=== PATIENT | male | born 1945 | race Caucasian/White ===

== ENCOUNTER 2022-09-04 12:46 | Inpatient (IN) | payer OTHER ==
[~2022-09-04] VITALS: Ht 180.3 cm; Wt 100.2 kg
[2022-09-04 12:56] VITALS: BP_SYST 145
[2022-09-04] MEDS ORDERED: NACL 0.9% 1,000 ML IV ONE (13:00)
[2022-09-04] MEDS ORDERED: LOP600 PO (13:06)
[2022-09-04] MEDS ORDERED: FURO-150 PO (13:06)
[2022-09-04] MEDS ORDERED: LORA10TA7 PO (13:06)
[2022-09-04] MEDS ORDERED: NEU300 PO (13:06)
[2022-09-04] MEDS ORDERED: KLO1 PO (13:06)
[2022-09-04] MEDS ORDERED: NORT50CA5 PO (13:06)
[2022-09-04] MEDS ORDERED: METF-518 PO (13:06)
[2022-09-04] MEDS ORDERED: TAMS-11 PO (13:06)
[2022-09-04] MEDS ORDERED: ATOR40TA68 PO (13:06)
[2022-09-04] MEDS ORDERED: LISI40TA13 PO (13:06)
[2022-09-04 13:20] LABS: BASOPHILS % (AUTO) 0.2 % (0.0-2.0); EOSINOPHILS % (AUTO) 0.2 % (0.0-4.0); HEMATOCRIT 35.4 % (36-54); HEMOGLOBIN 11.7 g/dL (14.0-18.0); LYMPHOCYTES # (AUTO) 0.8 K/uL (1.0-5.5); LYMPHOCYTES % (AUTO) 4.9 % (20.5-51.5); MEAN CORPUSCULAR HEMOGLOBIN 29 pg (27-31); MEAN CORPUSCULAR HGB CONC 33 % (32-36); MEAN CORPUSCULAR VOLUME 88 fL (79.0-98.0); MONOCYTES % (AUTO) 5.7 % (1.7-9.3); NEUTROPHILS # (AUTO) 15.3 K/uL (1.8-7.7); PLATELET COUNT (AUTO) 237 K/uL (130-430); RED BLOOD CELL COUNT(AUTO) 4.03 MIL/uL (4.2-6.2); RED CELL DISTRIBUTION WIDTH 14.5 % (9.0-15.0); WHITE BLOOD COUNT (AUTO) 17.2 K/uL (4.8-10.8)
[2022-09-04 13:33] LABS: ANION GAP 9 (5-15); CALCIUM 8.7 mg/dL (8.4-11.0); CHLORIDE 96 mmol/L (98-107); CREATININE 1.22 mg/dL (0.55-1.30); GLUCOSE 362 mg/dL (70-99); UREA NITROGEN, BLOOD 27 mg/dL (8-21)
[2022-09-04 13:38] LABS: INR 1.1 (0.80-1.20); PROTHROMBIN TIME 11.1 SECS (9.5-12.5)
[2022-09-04 13:40] LABS: ALANINE AMINOTRANSFERASE 8 U/L (12-78); ALBUMIN 2.4 g/dL (3.4-4.8); ASPARTATE AMINOTRANSFERASE 14 U/L (10-37); LIPASE 32 U/L (73-393); TOTAL BILIRUBIN 0.5 mg/dL (0.0-1.0)
[2022-09-04 13:57] LABS: ACETONE, SERUM NEGATIVE (NEGATIVE)
[2022-09-04] MEDS ORDERED: AMPICILLIN SODIUM/SULBACTAM NA 3 GM in NS 100 ML IV ONE (14:15)
[2022-09-04 14:52] LABS: BILIRUBIN,URINE NEGATIVE (NEGATIVE); BLOOD, URINE NEGATIVE (NEGATIVE); CLARITY/URINE CLEAR (CLEAR); COLOR,URINE YELLOW (YELLOW); GLUCOSE,URINE 3+ (NEGATIVE); KETONES,URINE NEGATIVE (NEGATIVE); LEUKOCYTE ESTERASE ,URINE NEGATIVE (NEGATIVE); NITRITE, URINE NEGATIVE (NEGATIVE); PROTEIN URINE 2+ (NEGATIVE); UROBILINOGEN,URINE 0.2 (0.2-1.0)
[2022-09-04] MEDS ORDERED: AMPICILLIN SODIUM/SULBACTAM NA 3 GM VIAL ONE (15:00)
[2022-09-04 15:14] LABS: BACTERIA,URINE None Seen /HPF (None Seen); WBC,URINE NONE SEEN /HPF (0-3)
[2022-09-04 15:15] LABS: MUCUS,URINE None Seen /LPF (None Seen)
[2022-09-04] MEDS ORDERED: INSULIN REGULAR, HUMAN 100 UNITS/ML, 3 ML VIAL IVP ONE (15:30)
[2022-09-04] MEDS ORDERED: INSULIN REGULAR, HUMAN 10 UNITS/0.1 ML, 3 ML VIAL ONE (15:33)
[2022-09-04 18:29] VITALS: BP_SYST 127
[2022-09-04] MEDS: PIPERACILLIN/TAZO 3.375/DEX-IS 50 ML IV SCH (22:30)
[2022-09-05] VITALS: BP_SYST 121
[2022-09-05] MEDS: PIPERACILLIN/TAZO 3.375/DEX-IS 50 ML IV SCH ×3 (05:49→20:13)
[2022-09-05 07:00] LABS: BASOPHILS % (AUTO) 0.1 % (0.0-2.0); EOSINOPHILS # (AUTO) 0.2 K/uL (0.0-0.4); HEMATOCRIT 36.9 % (36-54); HEMOGLOBIN 12.2 g/dL (14.0-18.0); LYMPHOCYTES # (AUTO) 0.9 K/uL (1.0-5.5); LYMPHOCYTES % (AUTO) 4.9 % (20.5-51.5); MEAN CORPUSCULAR HEMOGLOBIN 29 pg (27-31); MEAN CORPUSCULAR HGB CONC 33 % (32-36); MEAN CORPUSCULAR VOLUME 88 fL (79.0-98.0); MONOCYTES % (AUTO) 5.7 % (1.7-9.3); NEUTROPHILS # (AUTO) 15.2 K/uL (1.8-7.7); NEUTROPHILS % (AUTO) 88.3 % (40.0-70.0); PLATELET COUNT (AUTO) 241 K/uL (130-430); RED BLOOD CELL COUNT(AUTO) 4.21 MIL/uL (4.2-6.2); RED CELL DISTRIBUTION WIDTH 14.7 % (9.0-15.0); WHITE BLOOD COUNT (AUTO) 17.2 K/uL (4.8-10.8)
[2022-09-05 07:25] LABS: ANION GAP 6 (5-15); CALCIUM 8.7 mg/dL (8.4-11.0); CHLORIDE 101 mmol/L (98-107); GLUCOSE 263 mg/dL (70-99); UREA NITROGEN, BLOOD 19 mg/dL (8-21)
[2022-09-05] MEDS ORDERED: VANCOMYCIN HCL 1,000 MG in NS 250 ML IV SCH (09:00)
[2022-09-05] MEDS: VANCOMYCIN HCL 1,000 MG in NS 250 ML IV SCH ×2 (10:59→20:15)
[2022-09-05 11:30] VITALS: BP_SYST 146
[2022-09-05 18:25] LABS: BILIRUBIN,URINE NEGATIVE (NEGATIVE); BLOOD, URINE 2+ (NEGATIVE); CLARITY/URINE CLEAR (CLEAR); COLOR,URINE YELLOW (YELLOW); GLUCOSE,URINE 3+ (NEGATIVE); KETONES,URINE 2+ (NEGATIVE); LEUKOCYTE ESTERASE ,URINE NEGATIVE (NEGATIVE); NITRITE, URINE NEGATIVE (NEGATIVE); PROTEIN URINE 2+ (NEGATIVE); UROBILINOGEN,URINE 0.2 (0.2-1.0)
[2022-09-05 18:46] LABS: BACTERIA,URINE None Seen /HPF (None Seen); MUCUS,URINE 2+ /LPF (None Seen); WBC,URINE 0-3 /HPF (0-3)
[2022-09-05 20:00] VITALS: BP_SYST 150
[2022-09-06 04:00] VITALS: BP_SYST 136
[2022-09-06] MEDS: PIPERACILLIN/TAZO 3.375/DEX-IS 50 ML IV SCH ×3 (04:09→19:43)
[2022-09-06 07:32] VITALS: BP_SYST 134
[2022-09-06] MEDS: VANCOMYCIN HCL 1,000 MG in NS 250 ML IV SCH (09:30)
[2022-09-06] MEDS ORDERED: GLUCOSE (DEXTROSE) ORAL GEL -Adults PO PRN (10:30)
[2022-09-06] MEDS ORDERED: DEXTROSE 50% JECT 50 ML DISP.SYRIN IVP PRN (10:30)
[2022-09-06] MEDS ORDERED: D5W 1,000 ML IV PRN (10:30)
[2022-09-06 11:10] VITALS: BP_SYST 159
[2022-09-06 11:14] VITALS: BP_SYST 159
[2022-09-06] MEDS: INSULIN LISPRO SLIDING SCALE 100 UNITS/ML, 3 ML VIAL (humaLOG) SUBCUT PRN ×3 (11:37→20:23)
[2022-09-06] MEDS: GABAPENTIN 300 MG CAPSULE PO SCH ×2 (14:21→19:41)
[2022-09-06 16:15] VITALS: BP_SYST 150
[2022-09-06] MEDS: TAMSULOSIN HCL 0.4 MG CAP PO SCH (19:41)
[2022-09-06] MEDS: NORTRIPTYLINE HCL 25 MG CAPSULE PO SCH (19:42)
[2022-09-06 20:00] VITALS: BP_SYST 150
[2022-09-07] VITALS: BP_SYST 145
[2022-09-07] MEDS: PIPERACILLIN/TAZO 3.375/DEX-IS 50 ML IV SCH ×3 (04:32→20:32)
[2022-09-07 06:17] LABS: BASOPHILS % (AUTO) 0.2 % (0.0-2.0); EOSINOPHILS # (AUTO) 0.1 K/uL (0.0-0.4); EOSINOPHILS % (AUTO) 0.6 % (0.0-4.0); HEMATOCRIT 36.3 % (36-54); LYMPHOCYTES % (AUTO) 5.4 % (20.5-51.5); MEAN CORPUSCULAR HEMOGLOBIN 29 pg (27-31); MEAN CORPUSCULAR HGB CONC 33 % (32-36); MEAN CORPUSCULAR VOLUME 87 fL (79.0-98.0); MONOCYTES # (AUTO) 1.4 K/uL (0.0-1.0); MONOCYTES % (AUTO) 7.5 % (1.7-9.3); NEUTROPHILS # (AUTO) 16.4 K/uL (1.8-7.7); NEUTROPHILS % (AUTO) 86.3 % (40.0-70.0); PLATELET COUNT (AUTO) 327 K/uL (130-430); RED BLOOD CELL COUNT(AUTO) 4.16 MIL/uL (4.2-6.2); RED CELL DISTRIBUTION WIDTH 14.6 % (9.0-15.0)
[2022-09-07 06:41] LABS: ALANINE AMINOTRANSFERASE 19 U/L (12-78); ANION GAP 10 (5-15); ASPARTATE AMINOTRANSFERASE 18 U/L (10-37); CALCIUM 8.8 mg/dL (8.4-11.0); CHLORIDE 98 mmol/L (98-107); CREATININE 0.95 mg/dL (0.55-1.30); GLUCOSE 295 mg/dL (70-99); TOTAL BILIRUBIN 0.6 mg/dL (0.0-1.0); UREA NITROGEN, BLOOD 19 mg/dL (8-21)
[2022-09-07 07:57] VITALS: BP_SYST 142
[2022-09-07 08:06] LABS: % FREE PSA 15.9 % (.); FREE PSA 0.43 ng/mL; PROSTATE SPECIFIC AG TOTAL 2.7 ng/mL (0.0-4.0)
[2022-09-07] MEDS ORDERED: FUROSEMIDE 20 MG TABLET PO SCH (09:00)
[2022-09-07] MEDS: LORATADINE 10 MG TABLET PO SCH (09:07)
[2022-09-07] MEDS: GABAPENTIN 300 MG CAPSULE PO SCH ×3 (09:07→20:37)
[2022-09-07] MEDS: FUROSEMIDE 40 MG/4 ML VIAL IVP SCH (09:07)
[2022-09-07] MEDS: lisinopriL 20 MG TABLET PO SCH (09:08)
[2022-09-07 11:33] VITALS: BP_SYST 108
[2022-09-07] MEDS: INSULIN LISPRO SLIDING SCALE 100 UNITS/ML, 3 ML VIAL (humaLOG) SUBCUT PRN ×3 (12:25→20:45)
[2022-09-07] MEDS ORDERED: INSULIN Lispro 100 UNITS/ML, 3 ML VIAL (humaLOG) SUBCUT ONE (13:45)
[2022-09-07 15:21] VITALS: BP_SYST 155
[2022-09-07] MEDS ORDERED: INSULIN NPH 100 UNITS/ML 10 ML VIAL SUBCUT ONE (16:30)
[2022-09-07 19:34] VITALS: BP_SYST 131
[2022-09-07] MEDS: NORTRIPTYLINE HCL 25 MG CAPSULE PO SCH (20:32)
[2022-09-07] MEDS: TAMSULOSIN HCL 0.4 MG CAP PO SCH (20:33)
[2022-09-07] MEDS: ENOXAPARIN SODIUM 40 MG/0.4 ML SYRINGE SUBCUT SCH (20:34)
[2022-09-07] MEDS ORDERED: INSULIN GLARGINE 100 UNITS/ML, 10 ML VIAL SUBCUT SCH (21:00)
[2022-09-08 00:05] VITALS: BP_SYST 134
[2022-09-08] MEDS: PIPERACILLIN/TAZO 3.375/DEX-IS 50 ML IV SCH (06:12)
[2022-09-08] MEDS: INSULIN LISPRO SLIDING SCALE 100 UNITS/ML, 3 ML VIAL (humaLOG) SUBCUT PRN ×4 (06:19→20:56)
[2022-09-08 08:05] LABS: BASOPHILS % (AUTO) 0.2 % (0.0-2.0); EOSINOPHILS # (AUTO) 0.3 K/uL (0.0-0.4); EOSINOPHILS % (AUTO) 1.9 % (0.0-4.0); HEMATOCRIT 34.4 % (36-54); HEMOGLOBIN 11.3 g/dL (14.0-18.0); LYMPHOCYTES # (AUTO) 0.8 K/uL (1.0-5.5); LYMPHOCYTES % (AUTO) 5.8 % (20.5-51.5); MEAN CORPUSCULAR HEMOGLOBIN 29 pg (27-31); MEAN CORPUSCULAR HGB CONC 33 % (32-36); MEAN CORPUSCULAR VOLUME 88 fL (79.0-98.0); MONOCYTES # (AUTO) 1.1 K/uL (0.0-1.0); MONOCYTES % (AUTO) 8.5 % (1.7-9.3); NEUTROPHILS # (AUTO) 11.3 K/uL (1.8-7.7); NEUTROPHILS % (AUTO) 83.6 % (40.0-70.0); PLATELET COUNT (AUTO) 310 K/uL (130-430); RED BLOOD CELL COUNT(AUTO) 3.93 MIL/uL (4.2-6.2); RED CELL DISTRIBUTION WIDTH 14.9 % (9.0-15.0); WHITE BLOOD COUNT (AUTO) 13.5 K/uL (4.8-10.8)
[2022-09-08 08:21] LABS: ANION GAP 7 (5-15); CALCIUM 8.6 mg/dL (8.4-11.0); CHLORIDE 101 mmol/L (98-107); CREATININE 0.85 mg/dL (0.55-1.30); GLUCOSE 295 mg/dL (70-99); UREA NITROGEN, BLOOD 22 mg/dL (8-21)
[2022-09-08] MEDS ORDERED: INSULIN GLARGINE 100 UNITS/ML, 10 ML VIAL SUBCUT SCH (09:00)
[2022-09-08] MEDS: GABAPENTIN 300 MG CAPSULE PO SCH ×3 (09:30→20:44)
[2022-09-08] MEDS: FUROSEMIDE 40 MG/4 ML VIAL IVP SCH (09:30)
[2022-09-08] MEDS: LORATADINE 10 MG TABLET PO SCH (09:30)
[2022-09-08] MEDS: lisinopriL 20 MG TABLET PO SCH (09:30)
[2022-09-08 11:29] VITALS: BP_SYST 160
[2022-09-08] MEDS ORDERED: PIPERACILLIN/TAZO 3.375 GM in NS 50 ML IV ONE (14:30)
[2022-09-08 15:27] VITALS: BP_SYST 167
[2022-09-08] MEDS ORDERED: DOCUSATE SODIUM 100 MG CAPSULE PO ONE (16:30)
[2022-09-08] MEDS ORDERED: MILK OF MAGNESIA 30 ML UDC PO PRN (16:30)
[2022-09-08] MEDS ORDERED: hydrALAZINE HCL 20 MG/ML VIAL IVP PRN (16:30)
[2022-09-08 17:40] VITALS: BP_SYST 157
[2022-09-08] MEDS: INSULIN Lispro 100 UNITS/ML, 3 ML VIAL (humaLOG) SUBCUT SCH (17:43)
[2022-09-08 20:30] VITALS: BP_SYST 143
[2022-09-08] MEDS: NORTRIPTYLINE HCL 25 MG CAPSULE PO SCH (20:43)
[2022-09-08] MEDS: DOCUSATE SODIUM 100 MG CAPSULE PO SCH (20:43)
[2022-09-08] MEDS: TAMSULOSIN HCL 0.4 MG CAP PO SCH (20:44)
[2022-09-08] MEDS: ENOXAPARIN SODIUM 40 MG/0.4 ML SYRINGE SUBCUT SCH (20:45)
[2022-09-08] MEDS: PIPERACILLIN/TAZO 3.375 GM in NS 50 ML IV SCH (21:05)
[2022-09-08] MEDS: INSULIN GLARGINE 100 UNITS/ML, 10 ML VIAL SUBCUT SCH (22:11)
[2022-09-09] MEDS: TEMAZEPAM 7.5 MG CAPSULE PO PRN ×2 (00:34→21:32)
[2022-09-09 00:47] VITALS: BP_SYST 146
[2022-09-09] MEDS: PIPERACILLIN/TAZO 3.375 GM in NS 50 ML IV SCH ×3 (05:58→21:28)
[2022-09-09] MEDS: INSULIN Lispro 100 UNITS/ML, 3 ML VIAL (humaLOG) SUBCUT SCH ×3 (06:00→17:45)
[2022-09-09 07:26] LABS: PROTHROMBIN TIME 10.5 SECS (9.5-12.5)
[2022-09-09 08:00] VITALS: BP_SYST 136
[2022-09-09] MEDS: FUROSEMIDE 40 MG/4 ML VIAL IVP SCH (08:32)
[2022-09-09] MEDS: DOCUSATE SODIUM 100 MG CAPSULE PO SCH ×2 (08:37→21:33)
[2022-09-09] MEDS: LORATADINE 10 MG TABLET PO SCH (08:37)
[2022-09-09] MEDS: GABAPENTIN 300 MG CAPSULE PO SCH ×3 (08:38→21:32)
[2022-09-09] MEDS: lisinopriL 20 MG TABLET PO SCH (08:38)
[2022-09-09] MEDS: INSULIN GLARGINE 100 UNITS/ML, 10 ML VIAL SUBCUT SCH ×2 (10:09→21:30)
[2022-09-09 11:39] VITALS: BP_SYST 126
[2022-09-09 15:52] VITALS: BP_SYST 134
[2022-09-09] MEDS: INSULIN LISPRO SLIDING SCALE 100 UNITS/ML, 3 ML VIAL (humaLOG) SUBCUT PRN ×2 (17:46→21:31)
[2022-09-09 20:30] VITALS: BP_SYST 135
[2022-09-09] MEDS: ENOXAPARIN SODIUM 40 MG/0.4 ML SYRINGE SUBCUT SCH (21:31)
[2022-09-09] MEDS: NORTRIPTYLINE HCL 25 MG CAPSULE PO SCH (21:32)
[2022-09-09] MEDS: TAMSULOSIN HCL 0.4 MG CAP PO SCH (21:34)
[2022-09-10 00:42] VITALS: BP_SYST 157
[2022-09-10] MEDS: INSULIN Lispro 100 UNITS/ML, 3 ML VIAL (humaLOG) SUBCUT SCH ×3 (06:13→17:41)
[2022-09-10] MEDS: INSULIN LISPRO SLIDING SCALE 100 UNITS/ML, 3 ML VIAL (humaLOG) SUBCUT PRN ×3 (06:14→22:07)
[2022-09-10] MEDS: PIPERACILLIN/TAZO 3.375 GM in NS 50 ML IV SCH ×3 (06:14→22:10)
[2022-09-10 08:00] VITALS: BP_SYST 140
[2022-09-10] MEDS: LORATADINE 10 MG TABLET PO SCH (09:00)
[2022-09-10] MEDS: GABAPENTIN 300 MG CAPSULE PO SCH ×3 (09:00→21:58)
[2022-09-10] MEDS: lisinopriL 20 MG TABLET PO SCH (09:00)
[2022-09-10] MEDS: FUROSEMIDE 40 MG/4 ML VIAL IVP SCH (09:52)
[2022-09-10] MEDS: INSULIN GLARGINE 100 UNITS/ML, 10 ML VIAL SUBCUT SCH ×2 (09:54→22:05)
[2022-09-10] MEDS: DOCUSATE SODIUM 100 MG CAPSULE PO SCH ×2 (09:59→21:58)
[2022-09-10 11:10] VITALS: BP_SYST 128
[2022-09-10 16:10] VITALS: BP_SYST 156
[2022-09-10 20:00] VITALS: BP_SYST 132
[2022-09-10] MEDS: ENOXAPARIN SODIUM 40 MG/0.4 ML SYRINGE SUBCUT SCH (21:58)
[2022-09-10] MEDS: NORTRIPTYLINE HCL 25 MG CAPSULE PO SCH (21:58)
[2022-09-10] MEDS: TAMSULOSIN HCL 0.4 MG CAP PO SCH (21:58)
[2022-09-11 00:28] VITALS: BP_SYST 147
[2022-09-11] MEDS: PIPERACILLIN/TAZO 3.375 GM in NS 50 ML IV SCH ×3 (05:55→20:55)
[2022-09-11] MEDS: INSULIN Lispro 100 UNITS/ML, 3 ML VIAL (humaLOG) SUBCUT SCH ×3 (06:05→17:14)
[2022-09-11] MEDS: INSULIN LISPRO SLIDING SCALE 100 UNITS/ML, 3 ML VIAL (humaLOG) SUBCUT PRN ×3 (06:06→17:15)
[2022-09-11 08:00] VITALS: BP_SYST 140
[2022-09-11] MEDS ORDERED: INSULIN GLARGINE 100 UNITS/ML, 10 ML VIAL SUBCUT SCH ×2 (09:00→21:00)
[2022-09-11] MEDS: GABAPENTIN 300 MG CAPSULE PO SCH ×3 (10:54→20:50)
[2022-09-11] MEDS: DOCUSATE SODIUM 100 MG CAPSULE PO SCH ×2 (10:54→20:50)
[2022-09-11] MEDS: LORATADINE 10 MG TABLET PO SCH (10:54)
[2022-09-11] MEDS: FUROSEMIDE 40 MG/4 ML VIAL IVP SCH (10:55)
[2022-09-11] MEDS: lisinopriL 20 MG TABLET PO SCH (10:55)
[2022-09-11 11:19] LABS: BASOPHILS % (AUTO) 0.4 % (0.0-2.0); EOSINOPHILS # (AUTO) 0.2 K/uL (0.0-0.4); EOSINOPHILS % (AUTO) 2.6 % (0.0-4.0); HEMATOCRIT 34.1 % (36-54); HEMOGLOBIN 11.1 g/dL (14.0-18.0); LYMPHOCYTES # (AUTO) 0.9 K/uL (1.0-5.5); LYMPHOCYTES % (AUTO) 9.4 % (20.5-51.5); MEAN CORPUSCULAR HEMOGLOBIN 28 pg (27-31); MEAN CORPUSCULAR HGB CONC 33 % (32-36); MEAN CORPUSCULAR VOLUME 87 fL (79.0-98.0); MONOCYTES # (AUTO) 0.9 K/uL (0.0-1.0); MONOCYTES % (AUTO) 9.5 % (1.7-9.3); NEUTROPHILS # (AUTO) 7.1 K/uL (1.8-7.7); NEUTROPHILS % (AUTO) 78.1 % (40.0-70.0); PLATELET COUNT (AUTO) 374 K/uL (130-430); RED BLOOD CELL COUNT(AUTO) 3.91 MIL/uL (4.2-6.2); RED CELL DISTRIBUTION WIDTH 14.5 % (9.0-15.0); WHITE BLOOD COUNT (AUTO) 9.1 K/uL (4.8-10.8)
[2022-09-11 11:50] VITALS: BP_SYST 141
[2022-09-11 13:45] LABS: XHEMOGLOBIN A1CX 11.4 % (4.8-5.6)
[2022-09-11 15:15] VITALS: BP_SYST 144
[2022-09-11 20:00] VITALS: BP_SYST 124
[2022-09-11] MEDS: ENOXAPARIN SODIUM 40 MG/0.4 ML SYRINGE SUBCUT SCH (20:49)
[2022-09-11] MEDS: NORTRIPTYLINE HCL 25 MG CAPSULE PO SCH (20:49)
[2022-09-11] MEDS: TAMSULOSIN HCL 0.4 MG CAP PO SCH (20:50)
[2022-09-11 20:53] VITALS: BP_SYST 94
== END 2022-09-11 22:15 | disposition short-term general hospital (02) | DRG 177 ==
LOC: SED 12:46 → SMU 17:22
PROVIDERS: ADMIT Specialist; ATTEND Specialist
DX: J86.9 Pyothorax without fistula (principal); J18.9 Pneumonia, unspecified organism; J96.01 Acute respiratory failure with hypoxia; L03.115 Cellulitis of right lower limb; J44.0 Chronic obstructive pulmonary disease with (acute) lower respiratory infection; E11.51 Type 2 diabetes mellitus with diabetic peripheral angiopathy without gangrene; E11.65 Type 2 diabetes mellitus with hyperglycemia; E11.40 Type 2 diabetes mellitus with diabetic neuropathy, unspecified; E78.00 Pure hypercholesterolemia, unspecified; E87.70 Fluid overload, unspecified; G25.81 Restless legs syndrome; I10 Essential (primary) hypertension; E66.01 Morbid (severe) obesity due to excess calories; R29.6 Repeated falls; N40.0 Benign prostatic hyperplasia without lower urinary tract symptoms; L30.9 Dermatitis, unspecified; I87.8 Other specified disorders of veins; Z20.822 Contact with and (suspected) exposure to COVID-19; Z87.891 Personal history of nicotine dependence; Z79.4 Long term (current) use of insulin; Z68.30 Body mass index [BMI] 30.0-30.9, adult; Z79.899 Other long term (current) drug therapy
CPT/HCPCS: 36415; 36600; 71045; 71100; 71260-TC; 76376; 76604; 80048; 80053; 81000; 82009; 82306; 82803-TC; 82962; 83036; 83605; 83690; 83880; 84153; 84443; 84484; 85025; 85610-TC; 85730-TC; 87040; 87081; 87086; 93005; 93970; 96365; 96375; 97110-GP; 97116-GP; 97530-GP; 99291; J0295; J0360; J1650; J1815; J1940; J2543; J3370; J7050; Q9967; U0003